=== PATIENT | female | born 1935 | race Caucasian/White ===

== ENCOUNTER 2017-05-22 09:58 | Emergency (ER) | payer MEDICARE, OTHER ==
--- NOTE | 2017-05-22 11:10 | RAD ---
ABDOMEN 2 VIEWS WITH CHEST 1 VIEW: Date: 05/22/17 HISTORY: 81-year-old female with constipation for 1 week. FINDINGS: No significant acute intrathoracic disease. Moderate gas and fecal material in the colon. No evidence of bowel obstruction, free intraperitoneal air, or overt calculus. IMPRESSION: Unremarkable chest 1 view and abdomen 2 views. No bowel obstruction. POS: [facility]
[2017-05-22] MEDS ORDERED: Fleet Enema 133 ML BOT FS SCH ×2 (12:15→12:45)
== END 2017-05-22 13:50 | disposition home or self-care (01) ==
LOC: ERS 09:58
DX: K59.00 Constipation, unspecified (principal); I10 Essential (primary) hypertension; E11.9 Type 2 diabetes mellitus without complications; E78.5 Hyperlipidemia, unspecified; Z79.82 Long term (current) use of aspirin; Z79.84 Long term (current) use of oral hypoglycemic drugs; Z79.899 Other long term (current) drug therapy
CPT/HCPCS: 74022

== ENCOUNTER 2020-03-16 09:42 | Outpatient (CLI) | payer MEDICARE ==
--- NOTE | 2020-03-16 11:49 | MRI ---
MRI lumbar spine noncontrast: HISTORY: Right-sided sciatica. COMPARISON: None. FINDINGS: There are type I and type II Modic changes at L2-L3. There are type II Modic changes at L5-S1. Overal l there is appropriate T1 marrow signal intensity of the lumbar vertebra. Lumbar spine vertebral body height is maintained. No fracture. Appropriate signal intensity in the visualized paraspinal muscles and solid organs Conus medullaris terminates at the T12-L1 disc space. Spondylolisthesis: 2.3 mm of retrolisthesis of L2 upon L3. 3.2 mm of anterolisthesis of L3 upon L4. 6 mm of anterolisthesis of L4 upon L5. T12-L1:Adequate disc hydration. No posterior disc abnormality. No significant central canal stenosis or significant neural foraminal narrowing. L1-L2:Adequate disc hydration. No posterior disc abnormality. No significant central canal stenosis o r significant neural foraminal narrowing. L2-L3:Disc desiccation with moderate loss of disc space height. Broad-based disc bulge, ligamentum fl avum thickening and facet hypertrophy result in moderate central canal stenosis. Moderate right and moderate to severe left neural foraminal narrowing. L3-L4:Disc desiccation with moderate loss of disc space height. Broad-based disc bulge, ligamentum fl avum thickening and facet hypertrophy. Severe central canal stenosis. Moderate to severe bilateral neural foraminal narrowing. L4-L5:Disc desiccation with moderate loss of disc space height. Broad-based disc bulge, ligamentum fl avum thickening and facet hypertrophy. Severe central canal stenosis. Trace amount of fluid in the right facet joint. L5-S1:Disc desiccation with severe loss of disc space height. Broad-based disc bulge with a right sub articular disc herniation. There is partial obscuration of the traversing right S1 nerve root. Left subarticular zone is patent. There is no significant stenosis of the thecal sac. Moderate bilateral n eural foraminal narrowing. IMPRESSION: Degenerative changes of the lumbar spine as described above. Transcribed Date/Time: 03/16/2020 12:22 PM
== END 2020-03-16 09:43 | disposition home or self-care (01) ==
LOC: SCSMRI 09:42
PROVIDERS: ATTEND Family Medicine
DX: M54.31 Sciatica, right side (principal); M47.816 Spondylosis without myelopathy or radiculopathy, lumbar region
CPT/HCPCS: 72148

== ENCOUNTER 2023-07-10 10:44 | Emergency (ER) | payer MEDICARE ==
[2023-07-10 11:17] LABS: #Neutrophils 6.9 thou/uL (1.40-6.50); %Basophils 0.4 % (0.0-1.0); %Eosinophils 0.3 % (0.0-10.0); %Monocytes 11.2 % (0.0-10.0); %Neutrophils 77.5 % (42.0-75.0); Hematocrit 36.4 % (36.0-47.0); Hemoglobin 11.9 g/dL (12.0-16.0); Mean Corpuscular HGB CONC 32.7 g/dL (32.0-36.0); Mean Corpuscular Hemoglobin 31.8 pg (27.0-31.0); Mean Corpuscular Volume 97.3 fl (78.0-98.0); Mean Platelet Volume 9.7 fL (7.4-10.4); Platelet Count 415 10x3/uL (130-400); RBC Distribution Width 11.9 % (11.5-14.5); Red Blood Cell (RBC) Count 3.74 mill/uL (4.20-5.40); White Blood Cell (WBC) Count 8.9 10x3/uL (4.8-10.8)
[2023-07-10 11:30] LABS: Bilirubin Negative (Negative); Blood, Urine Negative (Negative); CAUTI Indications for Culture Alt mental st,lethar; Clarity Turbid (Clear); Glucose, Urine (Dipstick) Normal (Negative); Ketone, Urine Negative (Negative); Leukocyte 250 Leu/uL (Negative); Nitrite Negative (Negative); Protein, Urine (Dipstick) Negative (Neg-Trace); Specific Gravity, Urine 1.007 (1.002-1.036); Squamous Epithelial 0-3 HPF (0-3); Urobilinogen 3 mg/dL (Less than 2); WBC/HPF 21-50 HPF (0-3)
[2023-07-10 11:31] LABS: Bacteria/HPF 1+ HPF (None Seen); Urine Culture Reflex Yes Yes
[2023-07-10 11:33] LABS: ALT (SGPT) 23 U/L (8-55); AST (SGOT) 34 U/L (5-34); Albumin 4.2 g/dL (3.4-4.8); Alkaline Phosphatase 268 U/L (40-110); Anion Gap 15 mmol/L (10-20); BUN (Urea Nitrogen) 17 mg/dL (9.8-20.1); Bilirubin, Total 0.8 mg/dL (0.2-1.2); Calc. Creatinine Clearance 0 mL/min (70-130); Calcium 9.6 mg/dL (7.8-10.44); Carbon Dioxide 25 mmol/L (23-31); Chloride 99 mmol/L (98-107); Estimated GFR 53; Globulin 3.8 g/dL (2.4-3.5); Glucose 127 mg/dL (83-110); Potassium 4.6 mmol/L (3.5-5.1); Sodium 134 mmol/L (136-145)
[2023-07-10 11:38] LABS: Troponin I Less than 0.010 ng/mL (< 0.028)
== END 2023-07-10 14:22 | disposition home or self-care (01) ==
LOC: ERS 10:44
DX: N39.0 Urinary tract infection, site not specified (principal); R06.02 Shortness of breath; I10 Essential (primary) hypertension; E11.39 Type 2 diabetes mellitus with other diabetic ophthalmic complication; H42 Glaucoma in diseases classified elsewhere; E78.5 Hyperlipidemia, unspecified; Z79.82 Long term (current) use of aspirin; Z79.899 Other long term (current) drug therapy
CPT/HCPCS: 71045; 80053; 81001; 83880; 84484; 85025; 87077; 87086; 93005; 94760